=== PATIENT | male | born 1960 | race Caucasian/White ===

== ENCOUNTER 2019-11-20 10:39 | Emergency (ER) | payer BC, SELFPAY ==
[2019-11-20 10:53] VITALS: BP 130/87; PULSE 68; RESP 16; TEMP 36.4; O2SAT 99
--- NOTE | 2019-11-20 11:18 | ED.URI ---
HPI - URI/Sore Throat General Chief Complaint: Upper Respiratory Infection Stated Complaint: cold sx Time Seen by Provider: 11/20/19 11:19 Source: patient Mode of arrival: ambulatory Limitations: no limitations History of Present Illness HPI Narrative: Garo Hallman is a 59 yo male with a PMH of high cholesterol who comes to express care with general cold symptoms, may want covid testing Related Data Allergies Allergy/AdvReac Type Severity Reaction Status Date / Time No Known Allergies Allergy Verified 06/29/19 09:19 Review of Systems Review of Systems: Narrative: CONSTITUTIONAL: Denies fever, chills, sweats. EYES: Denies visual changes, redness, discharge. ENT: Denies rhinorrhea, sinus congestion congestion, sore throat, R otalgia. CARDIOVASCULAR: Denies chest pain, palpitations, edema. RESPIRATORY: Denies dyspnea, wheezing,no cough GASTROINTESTINAL: Denies abdominal pain, nausea, vomiting, diarrhea. GENITOURINARY: Denies dysuria, hematuria, abnormal discharge SKIN: Denies rash or itching. NEUROLOGIC: Denies numbness, or focal weakness. PSYCHIATRIC: Denies anxiety or depression. PMFSH Past Medical History Medical History Anal fissure Diverticula of intestine Lymphocytic colitis Surgical History Surgical History History of hernia repair Family History Family History Father Cerebrovascular accident Family history of irritable bowel syndrome Mother Family history of malignant neoplasm of stomach Sibling Family history of malignant neoplasm of urinary bladder Social History Social History Smoking status: Never smoker Second hand tobacco smoke exposure: No Alcohol intake: current Substance use: never Substance use type: does not use Gender identity (if verbalized by the patient): Male Comments At time of signature, I agree with nursing past medical, surgical, social and family history. There is no relevant family history pertinent to the presenting complaint. Exam Narrative: Exam Narrative: GENERAL: This is a well-nourished, well-developed patient, in mild distress. HEAD: normocephalic, atraumatic. EYES: PERRL. Sclera clear/white. Vision is grossly intact. EARS: External ears normal, auditory canals clear and without drainage, R ear canal red with serous drainage, tender. Hearing grossly intact. NOSE: External nose normal without nasal discharge, nares without redness, sinus pressure THROAT: Mucous membranes moist, posterior pharynx NECK: Neck supple, non-tender CARDIOVASCULAR: Regular rate and rhythm without murmurs, gallops, or rubs. RESPIRATORY: Clear to auscultation. Breath sounds equal bilaterally. No wheezes, rales, or rhonchi. GASTROINTESTINAL: Abdomen soft, non-tender, SKIN: warm, intact with no suspicious lesions or rash, good texture and turgor. NEURO: awake, alert, and oriented to person, place and time. There were no obvious focal neurologic abnormalities. Steady gait EXTREMITIES: Normal range of motion. BACK: Nontender without deformity Course Course Emergency Course: started on era gtts, calritin, decongestanrt referred for covid testing- pt would like test given directions on hydration and infection control Vital Signs Vital signs: Vital Signs Temperature 97.5 F L 11/20/19 10:53 Pulse Rate 68 11/20/19 10:53 Respiratory Rate 16 11/20/19 10:53 Blood Pressure 130/87 11/20/19 10:53 Pulse Oximetry 99 11/20/19 10:53 Temperature 97.5 F L 11/20/19 10:53 Pulse Rate 68 11/20/19 10:53 Respiratory Rate 16 11/20/19 10:53 Blood Pressure 130/87 11/20/19 10:53 Pulse Oximetry 99 11/20/19 10:53 MDM - URI/Sore Throat Differential Diagnosis Differential diagnosis: Likely upper respiratory infection, otitis media, sinusitis, vir
== END 2019-11-20 11:46 | disposition home or self-care (01) ==
PROVIDERS: Emergency Provider Nurse Practitioner; PCP Family Medicine
DX: J32.1 Chronic frontal sinusitis (principal); H65.01 Acute serous otitis media, right ear; Z20.828 Contact with and (suspected) exposure to other viral communicable diseases; E78.00 Pure hypercholesterolemia, unspecified
CPT/HCPCS: 99213; G0463

== ENCOUNTER 2020-01-26 10:55 | Emergency (ER) | payer BC, SELFPAY ==
[2020-01-26 11:03] VITALS: BP 127/89; PULSE 70; RESP 16; TEMP 37.3; O2SAT 99
== END 2020-01-26 11:06 | disposition left against medical advice (07) ==
LOC: EXPCOLL 10:59
PROVIDERS: Emergency Provider Internal Medicine Hematology & Oncology; PCP Family Medicine
DX: Z53.21 Procedure and treatment not carried out due to patient leaving prior to being seen by health care provider (principal)
CPT/HCPCS: 99199

== ENCOUNTER 2020-01-26 11:21 | Emergency (ER) | payer BC, SELFPAY ==
--- NOTE | ~2020-01-26 | CT_ITS ---
EXAMINATION: CT abdomen pelvis w con EXAM DATE: 01/26/2020 12:40 INDICATION: Abdominal pain, history diverticulitis. Nausea and diarrhea. TECHNIQUE: Spiral CT of the abdomen and pelvis was performed following intravenous injection of 100 m L Omnipaque 350. Axial, coronal and sagittal images were reviewed. The dose-length product (DLP) fo r this examination was 611.90 mGy-cm. The exposure was tailored according to patient size (auto mA e xposure control), and iterative reconstruction (ASIR) was used as additional dose reduction technique . Comparison is made to prior examination from 12/16/2017. FINDINGS: Small pancreatic head cystic region measuring 1.7 x 0.9 cm unchanged, likely benign. The l iver, spleen, adrenal glands and pancreas are otherwise unremarkable. Gallbladder is unremarkable. No biliary obstruction. Portal and splenic veins are patent. Kidneys enhance symmetrically. There is no hydronephrosis. The prostate is unremarkable. The bladder is unremarkable. There is no retr operitoneal or pelvic lymphadenopathy. Small periumbilical fat-containing hernia. Possible left ing uinal hernia repair. The appendix is normal. The stomach and small bowel are unremarkable. There is mild scattered coloni c diverticulosis. There is no adjacent inflammatory change to suggest diverticulitis. No free intra peritoneal gas. The heart is normal in size. There are no pericardial or pleural effusions. The l chidi bases are unremarkable. There are no osteoblastic or osteolytic lesions identified. IMPRESSION: 1. No acute intra-abdominal findings. Reviewed, dictated and finalized at location A.
[2020-01-26 11:23] VITALS: BP 131/89; PULSE 66; RESP 14; TEMP 36.6; O2SAT 99
[2020-01-26 11:37] LABS: Basophils Percent Auto 0.3 % (0.2-1.2); Eosinophils Absolute Auto 0.3 K/mm3 (0-0.3); Eosinophils Percent Auto 3.1 % (0-4.4); Hematocrit 46.8 % (42.0-52.0); Hemoglobin 15.9 g/dL (14.0-18.0); Immature Granulocyte Absolute 0.03 K/mm3 (0.00-0.031); Immature Granulocyte Percent A 0.3 % (0-0.5); Lymphocytes Absolute Auto 1.74 K/mm3 (0.9-3.2); Lymphocytes Percent Auto 18.1 % (18.3-44.2); Mean Corpuscular Hemoglobin 31.9 pg (26-34); Mean Corpuscular Volume 93.8 fl (80-100); Mean Platelet Volume 10.3 fl (7.4-10.4); Monocytes Absolute Auto 0.5 K/mm3 (0.1-0.6); Monocytes Percent Auto 5.6 % (2.6-8.5); Neutrophils Percent Auto 72.6 % (45.5-73.1); Platelet Count Result 201 k/mm3 (150-375); Red Blood Count 4.99 M/mm3 (4.6-6.20); Red Cell Distribution Width 12.2 % (11.5-14.5); White Blood Count 9.6 K/mm3 (4.5-10.0)
[2020-01-26 11:53] LABS: Alanine Aminotransferase 37 U/L (4-50); Albumin Level 4.1 g/dL (3.5-5.1); Alkaline Phosphatase 63 U/L (38-126); Anion Gap 7 mmol/L (8-16); Aspartate Amino Transferase 38 U/L (17-59); Bilirubin,Total 0.8 mg/dL (0.2-1.3); Blood Urea Nitrogen 12 mg/dL (9-20); Calcium 8.6 mg/dL (8.4-10.2); Carbon Dioxide 25 mmol/L (22-30); Chloride 107 mmol/L (98-107); Estimated CRCL calculation 84 ml/min; Estimated Glomerular Filt Rate > 60; Glucose 97 mg/dL (75-110); Lipase 75 U/L (23-300); Sodium 139 mmol/L (137-145)
[2020-01-26 11:56] LABS: Add Urine Microscopic? YES; Appearance Urine Clear (Clear); Bacteria Urine Trace /hpf; Bilirubin Urine Negative (Negative); Blood Urine Negative (Negative); Color Urine Yellow (Yellow); Glucose Urine UA Negative (Negative); Ketones Urine Negative (Negative); Leukocyte Esterase Ur Trace LEU/UL (Negative); Mucus Urine Rare /lpf; Nitrate Urine Negative (Negative); Protein Urine Negative (Negative); RBC Urine 0-2 /hpf (0-2); Squamous Epithelial Cell Urine Rare /hpf (Few); Urobilinogen Urine Negative mg/dL (<2.0); WBC Urine 0-3 /hpf
[2020-01-26 13:00] VITALS: BP 110/82; BP 115/79; BP 115/84; PULSE 56; PULSE 63; PULSE 70
--- NOTE | 2020-01-26 13:00 | PC.NURSE ---
Pt noted to have swelling to right upper FA. Pt states he did not see it prior to now. EDP made aware.
[2020-01-26 13:22] VITALS: BP 115/84; PULSE 63; RESP 18; O2SAT 100
[2020-01-26] MEDS: ONDANSETRON INJ 4 MG/2 ML VIAL IV PUSH (13:25)
[2020-01-26] MEDS: PANTOPRAZOLE SODIUM IV 40 MG VIAL IV PUSH (13:25)
[2020-01-26] MEDS: SODIUM CHLORIDE 0.9% IV 1,000 ML 999 ML IV CONT (13:26)
--- NOTE | 2020-01-26 15:04 | ED.NAVMDI ---
HPI - Nausea/Vomiting/Diarrhea General Chief complaint: Nausea/Vomiting/Diarrhea Stated complaint: nausea, diarrhea Time Seen by Provider: 01/26/20 11:43 Source: patient Mode of arrival: ambulatory Limitations: no limitations History of Present Illness HPI Narrative: Patient presents with chief complaint of lower lip faint epigastric discomfort that began last night. Patient states that he had a meal which with vegetables and went to bed at approximately 10:00 and woke up at 1130 with abdominal pain nausea and diarrhea. Patient states that he has a history of intermittent abdominal pain, diverticulitis, and other abdominal issues for which he followed up with Dr. Gutierrez gastroenterology but he is not currently on any home medications. He states that he has not had any major issues in the past 2 years. Patient denies fever, chills, vomiting, chest pain, shortness of breath or any other symptoms. Patient denies having any blood or mucus in his stool. Patient denies extremely foul-smelling stool. Patient denies being on antibiotics recently. Patient states he has not drank for ate anything since last night. Related Data Allergies Allergy/AdvReac Type Severity Reaction Status Date / Time No Known Allergies Allergy Verified 01/26/20 11:26 Review of Systems Review of Systems: Narrative: CONSTITUTIONAL: Denies fever, chills, or sweats. EYES: Denies visual changes, redness, or discharge. ENT: Denies rhinorrhea, congestion, sore throat, or otalgia. CARDIOVASCULAR: Denies chest pain, palpitations, or edema. RESPIRATORY: Denies cough or dyspnea. GASTROINTESTINAL: Reports abdominal pain, nausea, or diarrhea. Denies vomiting GENITOURINARY: Denies dysuria or hematuria. SKIN: Denies rash or itching. MUSCULOSKELETAL: Denies back pain, joint pain, or myalgia. NEUROLOGIC: Denies headache, numbness, dizziness, or weakness. PSYCHIATRIC: Denies anxiety or depression. PMFSH Social History Social History Smoking status: Never smoker Second hand tobacco smoke exposure: No Alcohol intake: current Substance use: never Substance use type: does not use Gender identity (if verbalized by the patient): Male Exam Narrative: Exam Narrative: GENERAL: Well-appearing, well-nourished, and in no acute distress. HEAD: Normocephalic, atraumatic. EYES: PERRLA and EOMI. ENT: Nares clear, no rhinorrhea or epistaxis. Mucous membranes moist. Oropharynx without tonsillar hypertrophy exudate or other lesions. Bilateral TMs pearly medina nonbulging NECK: Supple. No adenopathy or masses. CHEST: Clear to auscultation. No respiratory distress. No wheezes rales or rhonchi HEART: Regular rate and rhythm. ABDOMEN: Soft, mildly tender with deep palpation of the epigastric and lower left quadrant, nondistended. Hyperactive bowel sounds in all quadrants. EXTREMITIES: Normal range of motion. No edema. SKIN: Warm, dry, no rash. NEURO: No focal deficits. Alert and oriented x3. PSYCH: Normal mood and affect. Course Vital Signs Vital signs: Vital Signs Temperature 98 F 01/26/20 11:23 Pulse Rate 66 01/26/20 11:23 Respiratory Rate 14 01/26/20 11:23 Blood Pressure 131/89 01/26/20 11:23 Pulse Oximetry 99 01/26/20 11:23 Temperature 98 F 01/26/20 11:23 Pulse Rate 56 L 01/26/20 15:55 Respiratory Rate 18 01/26/20 15:55 Blood Pressure 124/84 01/26/20 15:55 Pulse Oximetry 100 01/26/20 15:55 MDM - Nausea/Vomiting/Diarrhea MDM Narrative Medical decision making narrative: The patient's history of prior fistula than diverticulitis found her primary to CT patient's abdomen to make sure there are not any complicating factors. Patient has not seen registered account administrator in over a year. Patient CT is without acute complications. Patient has been instructed to follow-up with his primary care and registered account administrator. Patient will be prescribed Zofran for home. Patient encouraged to advance
[2020-01-26 15:55] VITALS: BP 124/84; PULSE 56; RESP 18; O2SAT 100
== END 2020-01-26 16:00 | disposition home or self-care (01) ==
PROVIDERS: Emergency Provider Emergency Medicine; PCP Family Medicine
DX: K52.9 Noninfective gastroenteritis and colitis, unspecified (principal)
CPT/HCPCS: 36415; 74177; 80053; 81001; 83690; 85025; 96361; 96374; 96375; 99284; C9113; J2405; J7030; Q9967

== ENCOUNTER → 2022-01-05 10:50 | Outpatient (CLI) | payer BC, SELFPAY ==
--- NOTE | ~2022-01-05 | XR_ITS ---
XR lumbar spine min 4V DATE: 01/05/2022 11:44 INDICATION: Back pain, radiculopathy. TECHNIQUE: AP, lateral, bilateral oblique views, coned lateral lumbosacral view COMPARISON: 07/20/2014 lumbar spine FINDINGS: There is osteopenia. There is mild levoscoliosis of the lumbar spine. There is degenerative spurring of the lower thoracic and throughout the lumbar spine, with multilevel degenerative disc disease, moderately severe L1 to and L5-S1, mild at L2-3 and moderate at L3-4 and L4-5. No fracture or bone destruction, spondylolysis or spondylolisthesis is detected. The sacroiliac joints are intact. IMPRESSION: Mild levoscoliosis Osteopenia Multilevel degenerative disc disease Reviewed, dictated and finalized at location B.
== END ==
PROVIDERS: PCP Physician Assistant; Visit Provider Physician Assistant
DX: M54.16 Radiculopathy, lumbar region (principal); M41.86 Other forms of scoliosis, lumbar region; M51.36 Other intervertebral disc degeneration, lumbar region
CPT/HCPCS: 72110

== ENCOUNTER 2022-07-26 00:45 | Emergency (ER) | payer BC, SELFPAY ==
[2022-07-26] VITALS (30 sets, daily range): BP systolic 123–144; BP diastolic 87–91; PULSE 63–91; RESP 11–18; TEMP 37.4; O2SAT 93–98
--- NOTE | ~2022-07-26 | XR_ITS ---
Clinical Indication: Chest pain PA and lateral views of the chest: Comparison: 10/12/2015 Findings: The lungs are clear, without evidence of focal consolidation or pleural effusion. Cardiome diastinal silhouette is within normal limits. Bones and soft tissues are unremarkable. Impression: Normal chest. Reviewed, dictated and finalized at [facility]. ENT FINANCE SPECIALIST Impression: Normal chest.
--- NOTE | 2022-07-26 00:51 | ECG_ITS ---
Measurements Intervals Berry Rate: 85 P: 6 WA: 167 QRS: -76 QRSD: 93 T: -2 QT: 364 QTc: 435 Interpretive Statements SINUS RHYTHM PATTERN CONSISTENT WITH PULMONARY DISEASE INCOMPLETE RIGHT BUNDLE BRANCH BLOCK [90+ ms QRS DURATION, TERMINAL R IN V1/V2, 40+ ms S IN I/aVL/V4/V5/V6] LEFT ANTERIOR FASCICULAR BLOCK [QRS AXIS <= -45, QR IN I, RS IN II] ABNORMAL ECG NO PREVIOUS ECG AVAILABLE FOR COMPARISON Electronically Signed On 07-26-2022 10:09:29 BOOSTER PLANT OPERATOR by Alek Cason M.D.
--- NOTE | 2022-07-26 01:20 | ED.NECK ---
HPI - Neck Pain/Injury General Chief Complaint: Neck Pain/Injury Stated Complaint: shoulder, neck pain. ?chest pain Time Seen by Provider: 07/26/22 01:08 History of Present Illness HPI Narrative: Patient is a 62-year-old male with a history of hyperlipidemia here for evaluation of left shoulder pain over the past hour. Patient states that he woke up with the pain, described as a dull ache. He states he had a similar sensation 2 evenings ago that resolved without intervention. States that the pain radiates into his left neck and occasionally into his left chest. No shortness of breath, cough, fevers or chills, nausea or vomiting. He lives a very active lifestyle and denies any chest pain with exertion. No similar sensation 3 years ago and was admitted to outside hospital for stress test that was negative. EMS administered aspirin and nitroglycerin. Patient still having pain. Related Data Home Medications Medication Instructions Recorded Confirmed ascorbate calcium (vitamin C) 500 500 mg PO DAILY 01/05/22 01/29/22 mg tablet milk thistle 150 mg capsule 150 mg PO DAILY 01/05/22 01/29/22 nppnhrkw-jrf-ktlor acid 300 1 tablet PO DAILY 01/05/22 01/29/22 mcg-lycopene 600 mcg-lutein 300 mcg tablet (Centrum Silver Men) omega 8-nlo-hvh-fish oil 60 mg-90 1 cap PO DAILY 01/05/22 01/29/22 mg-500 mg capsule (Fish Oil) Allergies Allergy/AdvReac Type Severity Reaction Status Date / Time No Known Allergies Allergy Verified 07/26/22 00:53 Review of Systems Review of Systems: Gen: Denies fevers or chills Eyes: Denies eye pain or visual change ENT: Denies congestion Respiratory: Denies shortness of breath or cough CV: Denies chest pain or palpitations GI: Denies abdominal pain nausea, emesis or diarrhea : denies burning, urgency, frequency or hematuria Musculoskeletal: Reports left shoulder pain Neuro: Denies numbness, tingling, weakness or focal weakness Skin: Denies rash Except as documented, all other systems reviewed and negative [facility] Past Medical History Medical History Anal fissure Diverticula of intestine Lymphocytic colitis Surgical History Surgical History History of hernia repair History of rectal sphincterotomy Family History Family History Father Cerebrovascular accident Family history of irritable bowel syndrome Vascular dementia Mother Family history of malignant neoplasm of stomach Sibling Family history of malignant neoplasm of urinary bladder Other Gastric cancer Social History Social History Smoking status: Never smoker Second hand tobacco smoke exposure: No Alcohol intake: current Alcohol use details: Occasional. 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 Gender identity (if verbalized by the patient): Male Exam Narrative: APPEARANCE: Well appearing, no pain in distress, well-nourished. Head: Normocephalic and atraumatic. EYES: PERRLA/EOMI, conjunctivae clear NOSE: No nasal drainage EARS: External ear normal in appearance THROAT: Oropharynx is clear. Mucous membranes are moist. NECK: Supple. No adenopathy, no masses. RESPIRATORY: Airway patent, respirations nonlabored. Clear to auscultation bilaterally, no rales, rhonchi, wheezing. CARDIOVASCULAR: Strong radial pulses. Regular rate and rhythm without murmurs, rubs, or gallops. ABDOMINAL: Normoactive bowel sounds. Soft, nontender, nondistended. No rebound tenderness or guarding. MUSCULOSKE
[2022-07-26] MEDS: ACETAMINOPHEN 500 MG TABLET 1000 MG PO (01:38)
[2022-07-26 01:40] LABS: Basophils Percent Auto 0.4 % (0.2-1.2); Eosinophils Absolute Auto 0.3 K/mm3 (0-0.3); Eosinophils Percent Auto 2.9 % (0-4.4); Hematocrit 43.4 % (42.0-52.0); Hemoglobin 14.6 g/dL (14.0-18.0); Immature Granulocyte Absolute 0.04 K/mm3 (0.00-0.031); Immature Granulocyte Percent A 0.4 % (0-0.5); Lymphocytes Absolute Auto 2.31 K/mm3 (0.9-3.2); Lymphocytes Percent Auto 23.2 % (18.3-44.2); Mean Corpuscular HGB Conc 33.6 g/dl (32-36); Mean Corpuscular Hemoglobin 31.7 pg (26-34); Mean Corpuscular Volume 94.3 fl (80-100); Mean Platelet Volume 9.9 fl (7.4-10.4); Monocytes Absolute Auto 0.8 K/mm3 (0.1-0.6); Monocytes Percent Auto 7.8 % (2.6-8.5); Neutrophils Absolute Auto 6.5 K/mm3 (1.3-6.7); Neutrophils Percent Auto 65.3 % (45.5-73.1); Platelet Count Result 222 k/mm3 (150-375); Red Cell Distribution Width 11.6 % (11.5-14.5)
[2022-07-26 01:50] LABS: Alanine Aminotransferase 30 U/L (6-50); Albumin Level 4.1 g/dL (3.5-5.1); Alkaline Phosphatase 86 U/L (38-126); Anion Gap 9 mmol/L (8-16); Aspartate Amino Transferase 34 U/L (17-59); Bilirubin,Total 0.7 mg/dL (0.2-1.3); Blood Urea Nitrogen 16 mg/dL (9-20); Calcium 8.3 mg/dL (8.4-10.2); Carbon Dioxide 24 mmol/L (22-30); Chloride 104 mmol/L (98-107); Estimated CRCL calculation 81 ml/min; Estimated Glomerular Filt Rate > 60; Glucose 99 mg/dL (65-110); Potassium 3.6 mmol/L (3.4-5.0); Sodium 137 mmol/L (137-145)
[2022-07-26 02:02] LABS: Troponin I < 0.012 ng/mL (0.000-0.034)
[2022-07-26 05:44] LABS: Troponin I < 0.012 ng/mL (0.000-0.034)
== END 2022-07-26 06:27 | disposition home or self-care (01) ==
PROVIDERS: Emergency Provider Physician Assistant; PCP Family Medicine
DX: M25.512 Pain in left shoulder (principal); E78.5 Hyperlipidemia, unspecified; R94.31 Abnormal electrocardiogram [ECG] [EKG]; I45.2 Bifascicular block
CPT/HCPCS: 36415; 71046; 80053; 84484; 85025; 93005; 99284; A9270

== ENCOUNTER → 2022-07-27 09:23 | Outpatient (CLI) | payer BC, SELFPAY ==
--- NOTE | ~2022-07-27 | XR_ITS ---
Cervical Spine: AP, lateral, open-mouth views Clinical History: Pain Findings: The normal lordotic curve is maintained. No fracture or subluxation identified. There is mi ld degenerative disc change at C4-C5, C5-C6. There is moderate degenerative disc narrowing at C6-C7. There are large anterior marginal osteophytes extending from C3 through C7. There is mild uncovertebr al degenerative change at C4-C5 and C5-C6. Pre-vertebral soft tissues are unremarkable. Impression: No fracture or sublocation. Degenerative changes, as detailed above. Reviewed, dictated and finalized at location . LATORY AGENCY DIRECTOR Impression: No fracture or sublocation. Degenerative changes, as detailed above.
--- NOTE | ~2022-07-27 | XR_ITS ---
Left Shoulder Technique: AP and axillary views were obtained. Clinical History: Pain Findings: No fracture or dislocation is seen. Osseous alignment is anatomic. There is mild AC joint d egenerative change. Glenohumeral joint is unremarkable. Soft tissues are unremarkable. Impression: Mild AC joint degenerative change. Reviewed, dictated and finalized at [facility]. S SUPPORT ADMINISTRATOR Impression: Mild AC joint degenerative change.
== END ==
PROVIDERS: PCP Physician Assistant; Visit Provider Physician Assistant
DX: M19.012 Primary osteoarthritis, left shoulder (principal)
CPT/HCPCS: 72050; 73030

== ENCOUNTER → 2022-08-31 09:14 | Outpatient (CLI) | payer BC, SELFPAY ==
--- NOTE | ~2022-08-31 | CT_ITS ---
Clinical Indication: Chronic giant cell arteritis CT Scan of the Chest with Contrast: Technique: Contiguous sections were acquired throughout the chest after intravenous administration of 75 cc of Omnipaque 350. Dose reduction technique was used on this scan by utilizing automated exposu re control and iterative reconstruction technique. The dose-length product (DLP) was 349.31 mGy-cm. Findings: There is no evidence of any significant mediastinal, hilar or axillary lymphadenopathy. There is no f illing defect in the pulmonary arterial tree to suggest pulmonary embolus. There is no evidence of ao rtic dissection or aneurysm. There is no evidence of pleural or pericardial effusion. The lungs are clear. No pulmonary nodules or infiltrates are noted. Images through the upper abdomen reveal no abnormalities. Impression: No significant abnormality seen. Reviewed, dictated and finalized at [facility]. Impression: No significant abnormality seen.
[2022-08-31 09:32] LABS: Estimated Glomerular Filt Rate > 60
== END ==
PROVIDERS: PCP Family Medicine; Visit Provider Internal Medicine
DX: M31.6 Other giant cell arteritis (principal); G57.11 Meralgia paresthetica, right lower limb
CPT/HCPCS: 71260; Q9967

== ENCOUNTER 2022-12-26 09:11 | Outpatient (CLI) | payer BC, SELFPAY ==
--- NOTE | ~2022-12-26 | US_ITS ---
Limited Abdominal Sonogram: Real-time sonographic imaging of the right upper quadrant was performed. Clinical History: Abnormal serum enzyme levels Findings: The liver appears normal with no evidence of mass lesion or bile duct dilatation. Main por casey vein demonstrates normal direction of flow. The gallbladder is well distended, and appears normal with no evidence of gallstone or wall thickening. The common bile duct measures 5 mm. The visualize d pancreas, aorta, and IVC are unremarkable. Impression: No significant abnormality seen. Reviewed, dictated and finalized at location M. Impression: No significant abnormality seen.
== END 2022-12-26 09:12 ==
PROVIDERS: PCP Family Medicine; Visit Provider Family Medicine
DX: R74.8 Abnormal levels of other serum enzymes (principal)
CPT/HCPCS: 76705

== ENCOUNTER 2023-02-05 12:52 | Outpatient (CLI) | payer BC, SELFPAY ==
--- NOTE | ~2023-02-05 | US_ITS ---
EXAMINATION: US soft tissue head and neck DATE: 02/05/2023 13:50 INDICATION: Localized swelling, mass and lump, neck. TECHNIQUE: Multiple grayscale and Doppler ultrasound images of the neck were obtained. COMPARISON: Chest CT 08/31/2022 FINDINGS: There is no abnormal mass or lymphadenopathy in the patient's area of concern in the neck. IMPRESSION: 1. No abnormal mass or lymphadenopathy in the patient's area of concern in the neck. Reviewed, dictated and finalized at location A.
--- NOTE | ~2023-02-05 | US_ITS ---
EXAMINATION: US arterial ankle brachial ind DATE: 02/05/2023 13:44 INDICATION: Peripheral vascular disease TECHNIQUE: Segmental pressures and plethysmographic and Doppler waveforms of the brachial and lower e xtremity arteries were obtained. COMPARISON: None. FINDINGS: Right and left brachial artery pressures of mm Hg and 124 mm Hg, respectively, are 126 (normal differ ence <= 30 mmHg). The right ankle-brachial index (ALICIA) is 1.40 (normal >= 0.9-1.0). The right great toe-brachial index (TBI) is 0.84 (normal >= 0.65). Arterial Doppler waveforms are triphasic with brisk systolic upstroke s at both right posterior tibial and dorsalis pedis arteries. The left ALICIA is 1.25. The left TBI is 0.87. Arterial Doppler waveforms are triphasic with brisk systo lic upstrokes at both left posterior tibial and dorsalis pedis arteries. IMPRESSION: 1. No significant arterial occlusive disease with normal bilateral ABIs and TBIs. Reviewed, dictated and finalized at location A. IMPRESSION: 1. No significant arterial occlusive disease with normal bilateral ABIs and TBI s.
== END 2023-02-05 12:53 | disposition home or self-care (01) ==
PROVIDERS: PCP Family Medicine; Visit Provider Physician Assistant Medical
DX: I73.9 Peripheral vascular disease, unspecified (principal)
CPT/HCPCS: 76536; 93922

== ENCOUNTER 2023-02-20 14:48 | Outpatient (CLI) | payer BC, SELFPAY ==
--- NOTE | ~2023-02-20 | XR_ITS ---
XR chest 2V DATE: 02/20/2023 15:13 INDICATION: Pleural chest pain TECHNIQUE: 2 views COMPARISON: 08/31/2022 CT chest FINDINGS: Heart size appears borderline. Mild aortic unfolding. No hilar or mediastinal enlargement i s detected. No pulmonary infiltrate or consolidation, pleural effusion or pulmonary vascular congestion or pneumo thorax is detected. Degenerative spurring of the thoracic spine. IMPRESSION: No active pulmonary disease Reviewed, dictated and finalized at location A. IMPRESSION: No active pulmonary disease
== END 2023-02-20 14:49 ==
PROVIDERS: PCP Family Medicine; Visit Provider Family Medicine
DX: R07.81 Pleurodynia (principal)
CPT/HCPCS: 71046

== ENCOUNTER 2024-02-25 13:25 | Outpatient (CLI) | payer MEDICARE, SELFPAY ==
--- NOTE | 2024-02-25 15:00 | NEURO_ITS ---
Impression: # Complains of numbness of feet. # Findings compatible with axonal neuropathy. # Needle/EMG exam reveals neurogenic changes. # Clinical correlation recommended. Nerve Conduction Studies Anti Sensory Summary Table Stim Site NR Peak (ms) P-T Amp (?V) Site1 Site2 Delta-P (ms) Dist (cm) Isaías (m/s) Left Sup Fibular Anti Sensory (Ant Lat Mall) 14 cm 4.1 5.9 14 cm Ant Lat Mall 4.1 16.0 39 Right Sup Fibular Anti Sensory (Ant Lat Mall) 14 cm 4.0 15.1 14 cm Ant Lat Mall 4.0 16.0 40 Left Sural Anti Sensory (Lat Mall) Calf 4.6 12.8 Calf Lat Mall 4.6 16.0 35 Right Sural Anti Sensory (Lat Mall) Calf 4.2 6.4 Calf Lat Mall 4.2 16.0 38 Motor Summary Table Stim Site NR Onset (ms) O-P Amp (mV) Site1 Site2 Delta-0 (ms) Dist (cm) Isaías (m/s) Left Peroneal Motor (Vastus Med) Ankle 4.5 1.6 Popit Ankle 11.1 44.0 40 Popit 15.6 1.8 Right Peroneal Motor (Vastus Med) Ankle 4.5 3.2 Popit Ankle 10.0 41.0 41 Popit 14.5 2.6 Left Tibial Motor (Abd Cheney Brev) Ankle 5.2 1.0 Knee Ankle 10.7 47.0 44 Knee 15.9 0.6 Right Tibial Motor (Abd Cheney Brev) Ankle 4.8 1.5 Knee Ankle 11.7 42.0 36 Knee 16.5 1.1 F Wave Studies NR F-Lat (ms) L-R F-Lat (ms) Left Peroneal (Mrkrs) (EDB) 65.71 0.78 Right Peroneal (Mrkrs) (EDB) 64.93 0.78 Left Tibial (Mrkrs) (Abd Hallucis) 64.67 0.77 Right Tibial (Mrkrs) (Abd Hallucis) 65.44 0.77 EMG Side Muscle Nerve Root Ins Act Fibs Amp Dur Recrt Comment Right AntTibialis Dp Br Fibular L4-5 Nml Nml Nml >12ms +1 Right Gastroc Tibial S1-2 Nml Nml Nml >12ms +1 Right Fibularis Long Sup Br Fibular L5-S1 Nml Nml Nml >12ms +1 Right Flex Dig Long Tibial L5-S2 Nml Nml Nml >12ms +1 Right Ext Dig Brev Dp Br Fibular L5, S1 Nml Nml Nml >12ms +1 Right QuadratusFem QuadFemoris L4-5, S1 Nml Nml Nml >12ms +1 Left AntTibialis Dp Br Fibular L4-5 Nml Nml Nml >12ms +1 Left Gastroc Tibial S1-2 Nml Nml Nml >12ms +1 Left Fibularis Long Sup Br Fibular L5-S1 Nml Nml Nml >12ms +1 Left Flex Dig Long Tibial L5-S2 Nml Nml Nm >12ms +1 Left Ext Dig Brev Dp Br Fibular L5, S1 Nml Nml Nml >12ms +1 Left QuadratusFem QuadFemoris L4-5, S1 Nml Nml Nml >12ms +1 MTDD
== END 2024-02-25 13:26 | disposition home or self-care (01) ==
PROVIDERS: PCP Family Medicine; Visit Provider Family Medicine
DX: R20.0 Anesthesia of skin (principal)
CPT/HCPCS: 95886; 95910

== ENCOUNTER 2025-03-01 15:37 | Outpatient (CLI) | payer MEDICARE, SELFPAY ==
--- OUTSIDE RECORDS SUMMARY | 2000-07-08 08:30 | XMS_ITS | Continuity of Care Document ---
Author Organization [facility] Address [id number] [place] [address] [address] [place] [address] Phone Care Team Providers Care Doctor Of Radiology Name Role Phone Won Valverde Unavailable Unavailable Advance Directives Directive Yes / No Effective Date File Name No Information Encounters Encounter Description Practice Location Reason(s) For Visit Diagnoses Date Provider Providers Copied on Encounter [facility], [id number] [place] [address] [address], [place], [place], [id number], [place] tel:[phone] [facility] [place] No Information [id number] 1 Abr[address] Upton. [address] [facility] [place] , [address], [place], [address], [place]. tel:[phone] Family History Family Member Type Diagnosis Age At Onset No Information Payers Payer name Insurance type Covered green party ID Authoriza tion(s) [place] [id number] Social History Type Description Quantity Date Captured [...]
--- OUTSIDE RECORDS SUMMARY | 2025-03-01 15:00 | XMS_ITS | Encounter Summary ---
Author Organization [facility] [email or web address] [facility] Address [address] [place] [address] Care Team Providers Care Aluminum Hydroxide Process Operator Name Role Phone Unavailable Primary Care Provider Unavailabl e Reason for Referral * Radiology Services (Routine) - Open Specialty Diagnoses / Procedures Referred By Kimberlee t Referred To Contact Diagnoses Plasma cell disorder Procedures XR BONE SURVEY COMPLETE Curt Augustine MD [address] [place] [phone] Phone: tel: fax: Referral ID Status Reason Start Date Expiration Date Visits Re quested Visits Authorized [id number] Open 03/01/2025 04/01/2026 1 1 Reason for Visit * Reason Comments Establish Care Encounter Details Date Type Department Care Team (Late st Contact Info) Description 03/01/2025 3:00 PM CDT Office Visit [facility] Oncology and Hematology - [place] [address] [place] [address] [address] [place] [address] Curt Augustine MD [facility] [employer] [address] [place] [address] Colitis (Primary Dx); Giant cell arteritis (CMS/HCC); Neuropathy; High cholesterol; Plasma cell disorder Social History Tobacco Use Types Packs/Day Years Used Date Smoking Tobacco: Never Smokeless Tobacco: Never Tobacco Cessation:Counseling Given: Not Answered Alcohol Use Standard Drinks/Week Comments Yes 4 (1 standard drink = 0.6 oz pur e alcohol) Sex and Gender Information Value Date Recorded Sex Assigned at Not on file Legal Sex Male 3:27 PM CDT Gender Identity Not on file Sexual Orientation Not on file documented as of this encounter Last Filed Vital Signs Vital Sign Reading Time Taken Comments Blood Pressure 118/79 03/01/2025 2:57 PM CDT Pulse 72 03/01/2025 2:57 PM CDT Temperature 36.6 C (97.9 F) 03/01/2025 2:57 PM CDT Respiratory Rate - - Oxygen Saturation 97% 03/01/2025 2:57 PM CDT Inhaled Oxygen Concentration - - Weight 94.4 kg (208 lb 3.2 oz) 03/01/2025 2:57 P M CDT Height - - Body Mass Index - - documented in this encounter Plan of Treatment Upcoming Encounters Date Type Department Care Team (Late st Contact Info) Description 03/16/2025 4:30 PM CDT Telephone Check Up [facility] Oncology and Hematology [facility] [address] [facility] [address] [place] [address] Curt Augustine MD [address] [facility] [address] [place] [address] Scheduled Orders Name Type Priority Associated Diagnoses Orde r Schedule CBC WITH DIFFERENTIAL Lab Stat Plasma cell disorder Expected: 03/01/2025, Expires: 03/01/2026 COMPREHENSIVE METABOLIC PANEL Lab Stat Plasma cell disorder Expected: 03/01/2025, Expires: 03/01/2026 IMMUNOGLOBULINS IGG IGA IGM Lab Routine Plasma cell disorder Expected: 03/01/2025, Expires: 03/01/2026 PROTEIN ELECTROPHORESIS W/REFLEX,SERUM Lab Routine Plasma cell disorder Expected: 03/01/2025, Expires: 03/01/2026 KAPPA/LAMBDA, FREE LIGHT CHAINS Lab Routine Plasma cell disorder Expected: 03/01/2025, Expires: 03/01/2026 XR BONE SURVEY COMPLETE Imaging Routine Plasma cell disorder 1 Occurrences starting 03/01/2025 until 03/01/2026 documented as of this encounter Visit Diagnoses Diagnosis Colitis- Primary Other and unspecified noninfectious gastroenteritis and colitis Giant cell arteritis (CMS/HCC) Giant cell arteritis Neuropathy Mononeuritis of unspecified site High cholesterol Pure hypercholesterolemia Plasma cell disorder Other specified disease of white blood cells documented in this encounter
[2025-03-01 15:54] LABS: Hematocrit 45.7 % (42.0-52.0); Hemoglobin 14.7 g/dL (14.0-18.0); Immature Granulocyte Percent A 0.2 % (0-0.5); Lymphocytes Absolute Auto 2.30 K/mm3 (0.9-3.2); Mean Corpuscular HGB Conc 32.2 g/dl (32-36); Mean Corpuscular Hemoglobin 31.1 pg (26-34); Mean Corpuscular Volume 96.6 fl (80-100); Nucleated Red Blood Cells Absolute Auto 0.000 K/mm3 (0.0-0.012); Nucleated Red Blood Cells Perc 0.0 % (0.0-0.2); Platelet Count Result 205 k/mm3 (150-375); Red Blood Count 4.73 M/mm3 (4.6-6.20); White Blood Count 8.3 K/mm3 (4.5-10.0)
--- OUTSIDE RECORDS SUMMARY | 2025-03-01 16:27 | XMS_ITS | Clinical Summary ---
Author Organization [facility] Address [address] [address] Phone Care Team Providers Care Brick Picker Name Role Phone Lisy Stewart MD Primary Care Provider [phone] Sumaya Foreman APRN, EDI PROGRAMMER ANALYST Unavailable Carl Leigh MD Unavailable [phone] Allergies No known active allergies Medications bismuth subsalicylate (PEPTO-BISMOL) 262 MG/15ML Suspension Take 30 mL by mouth every 6 hours as needed. Active atorvastatin (LIPITOR) 20 MG Tablet Take 20 mg by mouth daily. 1 Active Multiple Vitamins-Minerals (CENTRUM SILVER PO) Take by mouth daily. Active Wyalusing-3 Fatty Acids (fish oil) 1200 MG Capsule Take 1,200 mg by mouth daily. Active Ascorbic Acid (Vitamin C) 1000 MG Tablet Take by mouth daily. Active Turmeric 500 MG Tablet Take by mouth daily. Active Milk Thistle 1000 MG Capsule Take by mouth daily. Active other by Other route daily. Total beets Active vancomycin (VANCOCIN) 125 MG Capsule Take 1 Capsule by mouth 4 times daily. 40 Capsule 1 Active Additional Information Patient not taking.Reported on 10/12/2021 diclofenac (VOLTAREN) 75 MG Tablet Delayed Response 3 Active folic acid (FOLVITE) 1 MG Tablet 3 Active omeprazole (PriLOSEC) 40 MG CAPSULE DELAYED RELEASE Take 40 mg by mouth daily. 3 Active traMADol (ULTRAM) 50 MG Tablet TAKE 1 TABLET BY MOUTH THREE TIMES DAILY WITH TYLENOL FOR PAIN CONTROL 3 Active sulfaSALAzine (AZULFIDINE) 500 MG Tablet Delayed Response Take 3,000 mg by mouth daily. 4 Active budesonide (ENTOCORT EC) [address] Bull ons:Diarrhea, unspecified type,Microscopic colitis, unspecified microscopic colitis type Take 3 Capsules by mouth every morning. 90 Capsule 4 Active Active Problems Problem Noted Date Diagnosed Date Polymyalgia rheumatica 08/20/2022 Immunizations Immunization Administration Dates Next Due TDAP Vaccine 10/17/2016,12/06/2011 Family History Medical History Relation Name Comments Cancer Brother bladder Stroke Father Cancer Mother gastric Cancer Sister skin Relation Name Status Comments Brother Father Alive Mother Sister Social History Tobacco Use Types Packs/Day Years Used Date Smoking Tobacco: Never Smokeless Tobacco: Never Tobacco Cessation:Counseling Given: Not Answered Alcohol Use Standard Drinks/Week Comments Yes 0 (1 standard drink = 0.6 oz pur e alcohol) Rare Sexually Active Control Partners Comments Not Currently Sex and Gender Information Value Date Recorded Sex Assigned at Not on file Legal Sex Male 12:14 AM CDT Gender Identity Not on file Sexual Orientation Not on file Occupation Industry Job Start Date Job End Date [employer] Not on file Not on file Not on file Last Filed Vital Signs Vital Sign Reading Time Taken Comments Blood Pressure 128/82 01/14/2024 11:18 AM CDT Pulse 72 01/14/2024 11:18 AM CDT Temperature 37.1 C (98.7 F) 01/14/2024 11:18 AM CDT Respiratory Rate 14 01/14/2024 11:1 8 AM CDT Oxygen Saturation 97% 01/14/2024 11: 18 AM CDT Inhaled Oxygen Concentration - - Weight 98.4 kg (216 lb 13.9 oz) 024 11:18 AM CDT Height 182.9 cm (6') 01/14/2024 11:18 AM CDT Body Mass Index 29.41 01/14/2024 11:18 AM CDT Plan of Treatment Health Maintenance Due Date Last Done Comments Cologuard 2004 Immunochemical Fecal Occult Blood 2004 Pneumococcal Immunization (5 0+ years) (1 of 1 - PCV) 2009 Zoster Immunization (1 of 2) 2009 PSA Discussion 2014 Influenza Immunization (#1) 2025 SARS-COV-2 Immunization (3 - season) 2025 09/26/2020, 09/03/2020 Td Immunization Every 10 Yea rs (Adults With 1 Tdap) 10/17/2026 10/17/2016, 12/06/2011 Colonoscopy 08/17/2031 08/16/2021, 02/10/2018 Colorectal Cancer Screening 08/17/2031 Respiratory Syncytial Virus (RSV) Immunization (Adult) (1 - 1-dose 75+ series) 2034 DTaP/Tdap/Td Immunization Discontinued 2016, 12/06/2011 Hepatitis C Virus (HCV) Screening Completed 08/28/2022 Hepatitis B Immunization Aged Out No longer eligible based on patient's age to complete this topic Human Papillomavirus (HPV) Immunization Aged Out No longer eligible based on patient's age to complete this topic Meningococcal Immunization (ACWY) Aged Out No longer eligible based on patient's age to complete this topic Rotavirus Immunization Aged Out No lo nger eligible based on patient's age to complete this topic Procedures Procedure Name Priority Date/Time Associated Diagnosis Comments HEPATITIS PANEL ACUTE (AHP) 08/28/2022 12:00 AM CDT from Last 3 Months or Most Recently Relevant to Health Maintenance Results * HEPATITIS PANEL ACUTE (AHP) (08/28/2022 12:00 AM CDT) 08/28/2022 us Provider Scan HEMATOLOGY ORDERABLES Final Resu lt SCAN from Last 3 Months or Most Recently Relevant to Health Maintenance Insurance MEDICARE [employer] Care Teams Brick Picker Relationship Specialty Start Date End Date Lisy Stewart MD [address] [place] [address] PCP - General Family Medicine 08/14/21 Sumaya Foreman APRN, EDI PROGRAMMER ANALYST [address] [place] [address] Nurse Practitioner Advanced Practice Nurse 09/13/22 Carl Leigh MD [address] [place] [address] Consulting Physician Gastroenterology 07/25/23
--- OUTSIDE RECORDS SUMMARY | 2025-03-01 16:27 | XMS_ITS | Data Portability ---
Author Organization [place] - [facility] [employer] [facility], Main Office Address [address] [place] [address] Care Team Providers Care Welder First Class Name Role Phone BRYANT JENNINGS Primary Care Provider BRYANT JENNINGS Referring Provider [phone] Assessment Encounter Date Assessment Date Assessment LastModified by Organization Details LastModified Time 08/20/2022 08/20/2022 Impression: Patient has a normal left shoulder examination today I do not think he has any pathology. His constellation of symptoms makes me think of polymyalgia rheumatica. He had severe pain in both temples. He has had left shoulder girdle pain bilateral biceps area pain and more recently bilateral proximal anterior thigh pain. He has had constitutional symptoms including low-grade fever weight loss and pronounced morning stiffness. However his sedimentation rate was completely normal. I studied the laboratory findings discussed in articles that I [employer] and it appears that there is some very bili and polymyalgia rheumatica patient's that some patients have a normal sedimentation rate and a high C-reactive protein and some patients a small subset have negative sedimentation rate and negative C-reactive protein. I recommended trying to get him into a senior process analyst to see if he can be seen in a timely fashion and we will have him call Dr. Hayes's office for appointment. I recommended trying a course of corticosteroids and I have prescribed prednisone 20 mg daily and I am going to order a C-reactive protein level. If his condition is polymyalgia rheumatica and he is having pain in his temples this could indicate temporal arteritis that can lead to blindness or stroke and he if He notices any worsening pain in his temples he probably should go to the emergency room. 45 minutes were spent in total care this patient more than half the time spent in [id number] care. Addendum: On August 24Saturday afternoon patient called the office to obtain the report of his C-reactive protein and this was done at [facility] and it was 210 the reference range being 0-10 so this was 20 1 times the normal level. I called the office of Dr. Hayes . I was advised that he had an appointment in a few weeks. I asked to speak to Dr. Hayes and he was still seeing patients and talk to me on the telephone I explained patient's symptoms to him and the extremely high C-reactive protein. I was advised that he would likely need a temporal artery biopsy to establish the diagnosis accurately. He offered to see the gentleman in 3 days following Saturday morning. He had been feeling much better in the morning with the 21 mg of prednisone but this seemed to be wearing off in the evening and I spoke to Dr. Hayes about that and he recommended trying 40 mg prednisone twice daily and I have prescribed that for him. [email or web address] Not available 09/02/2022 17:36:13 Plan of Treatment Reminders Order Date Submit Date Provider Last Modified By Organization Details Last Modified Time Details Appointments None recorded. Lab C-reactive protein, quantitativ e, serum or plasma - fax results to 2022 023 [email or web address] Not available 3 10:06:01 Referral None recorded. Procedures None recorded. Surgeries None recorded. Imaging None recorded. Medication Orders prednisone 20 mg tablet 2022 023 [email or web address] [id number], [address], [place], [place], [id number], 3 10:06:01 Patient TargetsNo targets recorded. Patient InstructionsNo instructions recorded. Reason for Referral None Reported. Results Created Date Observation Date Name Description Value Unit Range Abnormal Flag Note LastModifiedBy Organization Detail LastModifiedTime 08/03/1907/27/2022 XR, shoul carlene, 2 or more view No observ ation record ed. [email or web address] Not Available 07/2022 16:10:16 08/03/1907/26/2022 XR, chest , 2 view No observ ation record ed. [email or web address] Not Available 07/2022 16:10:16 08/21/1907/27/2022 XR, shoul carlene No observ ation record ed. [email or web address] Not Available 2022 18:27:42 Result Notes None recorded. Problems Name Problem SNOMED Code Status Onset Date Resolution Date Notes Provider Name and Address Organization Details Recorded Time Pain of left shoulder joint [id number] 9109 Active 2022 NANCY Blake null, [facility] 3 14:18:54 Polymyalgia rheumatica 32208131 Active 2022 Estela Rodriguez FOUNDRY HELPER null, [facility] 3 15:38:25 Problem Notes None recorded. Medical Equipment None Reported. Medications Name Sig Start Date Stop Date Status Note LastModified by Organization Details LastModified Time cyclobenzapr ine 10 mg tablet TAKE 1 TABLET BY MOUTH THREE TIMES DAILY NEEDED FOR MUSCLE SPASM active Not Available Not Available No t Available prednisone 10 mg tablet TAKE 4 TABLETS BY MOUTH DAILY active Not Available Not Available No t Available atorvastatin 20 mg tablet TAKE 1 TABLET BY MOUTH DAILY active Not Available Not Available No t Available meloxicam 15 mg tablet TAKE 1 TABLET BY MOUTH DAILY active Not Available Not Available No t Available prednisone 20 mg tablet TAKE 1 TABLET BY MOUTH EVERY DAY active Not Available Not Available No t Available methotrexate sodium 2.5 mg tablet active Not Available Not Available No t Available benzonatate 100 mg capsule TAKE 1 CAPSULE BY MOUTH THREE TIMES DAILY NEEDED FOR COUGH 08/20 completed Not Available Not Available Not Available diclofenac sodium 75 mg tablet,delay ed release TAKE 1 TABLET BY MOUTH TWICE DAILY NEEDED FOR PAIN active Not Available Not Available No t Available folic acid 1 mg tablet active Not Available Not Available No t Available amoxicillin 875 mg-potassium clavulanate 125 mg tablet TAKE 1 TABLET BY MOUTH TWICE DAILY 08/20 completed Not Available Not Available Not Available Vitamin C active Not Available Not Mulu ilable Not Available calcium active Not Available Not Avail able Not Available Fish Oil active Not Available Not Avai lable Not Available Centrum Silver active Not Available Not Available Not Available Super Beta-Caroten e active Not Available Not Available Not Available Vitals Date Recorded Body height Body mass index (BMI) Body weight Provider Name and Address Organization Details Last Updated DateTime 08/20/2022 180.34 cm 28.5 kg/m2 15663.84 g NANCY Blake [facility] [employer] [facility] 08/20/2022 14:22:06 Social History None recorded. Functional Status Question Answer Note LastModified by Organizat ion Details LastModified Time What is your level of alcohol consumption? Occasional [email or web address] Information not available 08/20/2022 Mental Status None recorded. Family History Relationship Description Onset Age of this Age Resolved Age Notes LastModified by Organization Details LastModified Time Father Family history of stroke Not available 2022 14:18:00 Medical History Condition Response BLINDNESS N KIDNEY STONES N MRSA N CARPAL TUNNEL SYNDROME N LUNG DISEASE/DISORDER N HISTORY OF DRUG ABUSE N RADIATION / CHEMOTHERAPY N COPD N SPORTS INJURY N ANKLE PAIN N BLOOD DISEASES N PAST SPINAL SURGERY N SCHIZOPHRENIA N SHINGLES N BOWEL PROBLEMS N SHOULDER PAIN N DEPRESSION (INCLUDING POST ) N FAILED BACK SYNDROME N STROKE/TIA N KNEE PAIN N ULCERS N OTHER MODALITIES N BENIGN PROSTATIC HYPERPLASIA N OBESITY N GERD/NAUSEA N ANEURYSM N URINARY/BLADDER/KIDNEY PROBLEMS N CORONARY ARTERY DISEASE (CAD) N Do you have Advance directive? N ADDICTION CONCERNS N USE OF BLOOD THINNERS N SKIN PROBLEMS N EMPHYSEMA N MUSCLE,JOINT OR BONE PROBLEMS N DVT N STOMACH ULCERS N BLOOD CLOTS N PAST HISTORY OF VEHICULAR ACCIDENT N USE OF NSAIDS N CONCUSSION OR SPINAL TRAUMA N ARTERIAL INSUFFICIENCY N NEUROPATHY N AIDS/HIV N FRACTURES N ELBOW PAIN N HYPERTENSION N TOURETTE'S N ANXIETY DISORDER N Metal allergy N BLOOD TRANSFUSION N ANEMIA/BLOOD DISORDER N BIPOLAR DISORDER N BRONCHITIS N OSTEOARTHRITIS N TUBERCULOSIS N FOOT PROBLEM N HEART VALVE DISORDERS N SLEEP APNEA N ALLERGIES/HAYFEVER N SOFT TISSUE INJURY N BACK INJECTIONS N INFECTIOUS DISEASE N HEART ARRHYTHMIA N INSOMNIA N ESRD N PAST INTERVENTIONAL PAIN MANAGEMENT HIST ORY N HIGH CHOLESTEROL / HYPERLIPIDEMIA N RHEUMATOID ARTHRITIS N PAST MEDICATION HISTORY N PVD N EDEMA N CHRONIC PAIN SYNDROME N CAROTID BLOCKAGE N BACK / NECK PROBLEMS N HAVE YOU BEEN HOSPITALIZED OR SEEN IN [facility] IN THE PAST YEAR ? N BURSITIS N HERNIATED DISC N DIALYSIS N POLYCYSTIC OVARIES N FIBROMYALGIA N OSTEOPOROSIS N ARTHRITIS N RESPIRATORY PROBLEMS N NO SIGNIFICANT PAST MEDICAL HISTORY N PAST HISTORY OF FALL N PERIPHERAL NEUROPATHY N DIABETES, TYPE N VON WILLIBRAND'S DISEASE N HEARTBURN / REFLUX N POST LAMINECTOMY SYNDROME N HEPATITIS / LIVER DISEASE N GOUT N SLEEP DISORDER N ALZHEIMER'S DISEASE N HERPES N HEADACHES/MIGRAINES N SEIZURES/EPILEPSY N VASCULAR DISEASE N Blood Disorder N HIP PAIN N DIZZINESS N HEAD TRAUMA OR INJURY N HEART DISEASE/HEART PROBLEMS N MULTIPLE SCLEROSIS N NEUROPSYCHOLOGICAL N CARDIAC ARRHYTHMIA N CANCER: SPECIFY N ANESTHESIA COMPLICATIONS N ATRIAL FIBRILLATION N AUTOIMMUNE DISEASE N Past Encounters Encounter ID Performer Location Encounter Start Date Encounter Closed Date Diagnosis/Indication Diagnosis SNOMED-CT Code Diagnosis ICD10 Code Diagnosis IMO Codes Diagnosis Note [id number] Mason Parker MD [facility] [address] [place] [address] 08/20/2022 13:53:07 09/03/2022 09:41:37 Pain of left shoulder joint [id number] 9202945 M25.512 Health Concerns Section Related Observation LastModified by Organization Detai ls LastModified Time None Recorded Concern Status LastModified by Organization Details LastModified Time None Recorded Advance Directives Directive None Recorded Payers Insurance Date Sequence Insurance Name Policy Number Policy Burton Covered Member ID Burton Member ID Guarantor Name 09/04/2022 1 [place] [id number] Garo Hallman [id number] Garo Hallman Notes Date Note Type Note Provider Name and Address Organization Details Recorded Time 08/20/2022 text/html patient is a 62-year-old gentleman who is referred for evaluation of pain in his left shoulder. The symptoms started suddenly 4 weeks ago. He woke at 12:30 p.m. at night and had extreme pain in the left side of his neck and to her ear left chest the sternum posterior shoulder blade the top shoulder. He recalled that he worked out day before but that no symptoms. He thought he might be having a heart attack. He called 911 and the ambulance gave him nitroglycerin and baby aspirin in the went to the hospital and had EKG and troponin levels x2 2 hours apart and chest x-ray and it was felt that heart attack was ruled out. Prior to discharge the emergency room his pain had improved by about 75%. He denied any numbness or tingling in left upper extremity. He did have x-rays left shoulder 07/27/2022 and cervical spine which showed mild AC joint degenerative change and prominent anterior vertebral endplate osteophytes C4-5 6 and 7 consistent with cervical spondylosis. His symptoms resolved after 1 day and he returned to work for about a week and half. He was taking muscle relaxers and meloxicam. He thought the meloxicam may be caused headaches we tried diclofenac in seem to help. After that he started having pain that was excruciating in both biceps. Pain was not related to any movement of the elbow or shoulder. Pain seems to seem to radiate into the left forearm. More recently he has noticed pain in both thighs anteriorly right greater than left. He also has had severe pains in the sides of his head his temples bilaterally. He has lost 16 lb as he has lost his appetite. He has a history of lateral thigh numbness on the right a tingling burning sensation right lateral thigh consistent and would this was thought to be due to degenerative disc disease in his lower lumbar spine. This was a few years ago. He did 6 months of physical therapy on core strengthening and back stabilization exercises and his symptoms resolved. He has been having a low-grade fever and he feels he is tired all the time. He has morning stiffness that lingers several hours. He was sent for blood work to look for signs of an inflammatory process. Alk-phos was slightly elevated at 133. Rheumatoid factor slightly elevated at 23.7 but the anti CCP was 0. Sedimentation rate was normal at 24. JOSSE screen was negative. In addition to be referred to me he was referred to Dr. Asencio for a rheumatologic evaluation. He has left several messages with their office and is not heard anything regarding setting up an appointment. Mason Parker MD [address] [place] [address], [place] [address], [place], [address], [place] [facility] 09/02/2022 17:36:35
--- OUTSIDE RECORDS SUMMARY | 2025-03-01 16:27 | XMS_ITS | Clinical Summary ---
Author Organization [facility] Address [address] [place] [address] Care Team Providers Care Cytology Teacher Name Role Phone Madhu Diallo MD Primary Care Provider [phone] Madhu Diallo MD Unavailable [phone] Source Comments [facility],non-owned Affiliates and Associated Physician Practices is amultiple site organization consisting of ambulatory clinics and hospital sitesin [place], [place], [place] and [place]. This disclosure is being madepursuant to the Care Everywhere program and may not contain all information available regarding this patient. Last updated 18.[facility] Medications * Be aware that medications may not be up to date on this document. Alwaysverify current medications with the patient. No known medications Social History Tobacco Use Types Packs/Day Years Used Date Smoking Tobacco: Never Sex and Gender Information Value Date Recorded Sex Assigned at Not on file Legal Sex Male 11:05 AM CDT Gender Identity Not on file Sexual Orientation Not on file Last Filed Vital Signs Vital Sign Reading Time Taken Comments Blood Pressure 116/82 05/09/2016 9:13 AM DATA PROCESSING SUPERVISOR Pulse 66 05/09/2016 9:13 AM DATA PROCESSING SUPERVISOR Temperature 36.8 C (98.2 F) 05/09/2016 9:13 AM DATA PROCESSING SUPERVISOR Respiratory Rate 16 05/09/2016 9:13 AM DATA PROCESSING SUPERVISOR Oxygen Saturation 98% 05/09/2016 9:13 AM DATA PROCESSING SUPERVISOR Inhaled Oxygen Concentration - - Weight 102.1 kg (225 lb) 05/09/2016 9:13 AM DATA PROCESSING SUPERVISOR Height 182.9 cm (6') 05/09/2016 9:13 AM DATA PROCESSING SUPERVISOR Body Mass Index 30.52 05/09/2016 9:13 AM DATA PROCESSING SUPERVISOR Plan of Treatment Health Maintenance Due Date Last Done Comments COLOGUARD (AGES 45-75) - COL ON CA SCREENING 1959 COLON MONITORING 1959 COLONOSCOPY - COLON CA SCREENING 1959 CT COLONOGRAPHY - COLON CA SCREENING 1959 Colorectal Cancer Screening 1959 FIT - COLON CA SCREENING 1959 FLEX SIG - COLON CA SCREENING 1959 LIPID TESTING 1959 HIV SCREENING 1974 HEPATITIS C SCREENING 02/26/1977 DTAP/TDAP/TD VACCINES (1 - Tdap) 1978 PNEUMOCOCCAL VACCINE 50+ (1 of 1 - PCV) 2009 ZOSTER VACCINE (1 of 2) 2009 DEPRESSION SCREENING 06/03/2024 COVID-19 VACCINE (1 - 2023-2 5 season) 2025 INFLUENZA VACCINE (#1) 2025 Respiratory Syncytial Virus (RSV) Vaccine Pt: or over 60 yrs (1 - 1-dose 75+ series) 2034 HEPATITIS B VACCINE Aged Out No longe r eligible based on patient's age to complete this topic HIB VACCINE Aged Out No longer eligi ble based on patient's age to complete this topic HPV VACCINE Aged Out No longer eligi ble based on patient's age to complete this topic MENINGOCOCCAL (Group B) VACC INE SHARED DECISION-MAKING Aged Out No longer eligibl e based on patient's age to complete this topic MENINGOCOCCAL GROUPS A/C/Y/W VACCINE Aged Out No longer eligible b ased on patient's age to complete this topic Insurance HENRRY Care Teams Cytology Teacher Relationship Specialty Start Date End Date Madhu Diallo MD [address] [facility] [place] [address] PCP - General 02/25/18 Madhu Diallo MD [address] [place] [address] Family Medicine 02/25/18
--- OUTSIDE RECORDS SUMMARY | 2025-03-01 16:27 | XMS_ITS | Clinical Summary ---
Author Organization [facility] Isabela aKng Address [address] [place] [place] [address] Care Team Providers Care Public Health Outreach Worker Name Role Phone Unavailable Primary Care Provider Unavailabl e Allergies No known active allergies Medications atorvastatin (LIPITOR) 20 mg tablet Take 20 mg by mouth daily. Active predniSONE (DELTASONE) 20 mg tablet Take 20 mg by mouth daily. Active sulfaSALAzine (AZULFIDINE EN-TAB) 500 mg Tablet, Delayed Release (E.C.) Take 3,000 mg by mouth daily. 01/13/2024 Active Active Problems Problem Noted Date Diagnosed Date Colitis 03/01/2025 Giant cell arteritis 03/01/2025 Neuropathy 03/01/2025 High cholesterol 03/01/2025 Encounters Date Type Department Care Team Description 03/01/2025 3:00 PM CDT Office Visit [facility] - [place] [address] [place] [address] Curt Augustine MD Colitis (Primary Dx); Giant cell arteritis (CMS/HCC); Neuropathy; High cholesterol; Plasma cell disorder from Last 3 Months Family History Medical History Relation Name Comments Cancer Brother 1 No Known Problems Brother 2 Heart Disease Father Cancer Mother Cancer Sister Relation Name Status Comments Brother 1 Alive Brother 2 Alive Father Alive Mother Sister Alive Social History Tobacco Use Types Packs/Day Years [...] - - Body Mass Index - - Plan of Treatment Upcoming Encounters Date Type Department Care Team (Late st Contact Info) Description 03/16/2025 4:30 PM CDT Telephone Check Up [facility] - [place] [address] [place] [address] Curt Augustine MD [address] [place] [address] Health Maintenance Due Date Last Done Comments Traditional Medicare (ACO) A nnual Wellness Visit 1978 COLORECTAL SCREENING 2004 Colorectal Cancer Screening 2004 FIT-DNA Q 3 years 2004 FIT/FOBT Q 1 year 2004 Flex Sig/CT Colonography Q 5 years 2004 PNEUMOCOCCAL VACCINE 50+ YEA RS (1 of 1 - PCV) 2009 ZOSTER VACCINE (1 of 2) 2009 INFLUENZA VACCINE (#1) 2025 DTAP/TDAP/TD VACCINES (3 - Td or Tdap) 10/17/2026, 12/06/2011 RSV VACCINE (60+ or ) (1 - 1-dose 75+ series) 2034 Insurance MEDICARE PART A AND B [facility]
[2025-03-01 16:41] LABS: Alanine Aminotransferase 19 U/L (6-50); Albumin Level 4.3 g/dL (3.5-5.1); Alkaline Phosphatase 82 U/L (38-126); Anion Gap 7 mmol/L (4-12); Aspartate Amino Transferase 28 U/L (17-59); Bilirubin,Total 0.5 mg/dL (0.2-1.3); Blood Urea Nitrogen 23 mg/dL (9-20); Calcium 9.0 mg/dL (8.4-10.2); Carbon Dioxide 27 mmol/L (22-30); Chloride 105 mmol/L (98-107); Estimated Glomerular Filt Rate 59; Glucose 91 mg/dL (65-110); Potassium 4.3 mmol/L (3.4-5.0); Sodium 139 mmol/L (137-145); Total Protein 7.6 g/dL (6.3-8.2)
[2025-03-01 16:48] LABS: Immunoglobulin A 82 mg/dL (70-400); Immunoglobulin G 1130 mg/dL (700-1600); Immunoglobulin M 35 mg/dL (40-230)
[2025-03-02 14:09] LABS: Albumin 3.8 g/dL (2.9-4.4); Alpha-1-Globulin 0.2 g/dL (0.0-0.4); Alpha-2-Globulin 0.7 g/dL (0.4-1.0); Gamma Globulin 1.0 g/dL (0.4-1.8)
[2025-03-02 16:08] LABS: Free Lambda Lt Chains, Serum 8.4 mg/L (5.7-26.3); Kappa/Lambda Ratio, Serum 1.39 (0.26-1.65)
== END 2025-03-01 15:38 | disposition home or self-care (01) ==
PROVIDERS: PCP Family Medicine; Visit Provider Internal Medicine Hematology & Oncology
DX: D72.9 Disorder of white blood cells, unspecified (principal)
CPT/HCPCS: 36415; 80053; 82784; 83521; 84155; 84165; 85025

== ENCOUNTER 2025-03-01 16:05 | Outpatient (CLI) | payer MEDICARE, SELFPAY ==
--- OUTSIDE RECORDS SUMMARY | 2000-07-08 08:30 | XMS_ITS | Continuity of Care Document ---
Author Organization [facility] Address [id number] [place] [address] [address] [place] [address] Phone Care Team Providers Care Senior Stack Engineer Name Role Phone Won Valverde Unavailable Unavailable Advance Directives Directive Yes / No Effective Date File Name No Information Encounters Encounter Description Practice Location Reason(s) For Visit Diagnoses Date Provider Providers Copied on Encounter [facility], [id number] [place] [address] [address], [place], [place], [id number], [place] tel:[phone] [facility] [place] No Information [id number] 1 Abram Upton. [address] [facility] , [address], [place], [address], [place]. tel:[phone] Family History Family Member Type Diagnosis Age At Onset No Information Payers Payer name Insurance type Covered green party ID Authoriza tion(s) BC[employer] [place] [id number] Social History Type Description Quantity Date Captured Comments Sex Male Smoking Status No Information Chief Complaint And Reason For Visit No Information Reason For Referral Reason For Referral No Information History Of Present Illness Encounter Date Complaint History Of Prese nt Illness No Information Functional Status Date Functional Assessmen t No Information Instructions Date Instruction Additional Infor mation No Information Assessments Type Assessment Date No Information Patient Care Teams Name Effective Dates (start - stop) Status Members No Information
--- NOTE | ~2025-03-01 | XR_ITS ---
EXAMINATION: BONE SURVEY/METASTATIC SURVEY DATE: 03/01/2025 INDICATION: Asthma cell disorder TECHNIQUE: A skeletal survey was performed including AP views of the chest, abdomen and pelvis; AP and lateral/lateral swimmers views of the cervical, thoracic and lumbar spine; lateral view of the skull, and AP and lateral views of the appendicular skeleton excluding the hands and feet. COMPARISON: None. FINDINGS: Calcified nodules at the left lung base and at the spleen consistent with old granulomatous disease. No other airspace opacities, pulmonary edema, pleural effusion or pneumothorax. Cardiomediastinal silhouette is normal. Scattered degenerative skeletal changes including mild to moderate spondylosis in the cervical, thoracic and lumbar spine and mild polyarticular osteoarthritis in the extremities. There are bridging osteophytes at multiple levels consistent with diffuse idiopathic skeletal hyperostosis (DISH). Postoperative change of prior left inguinal hernia repair. Prostatic calcifications. Heterotopic ossification along the musculature at the medial right thigh suggests sequela of old trauma. No suspicious lytic or blastic bone lesions to suggest multiple myeloma or other metastatic disease. IMPRESSION: 1. No suspicious lytic or blastic bone lesions to suggest multiple myeloma or other osseous metastatic disease. Reviewed, dictated and finalized at location A. IMPRESSION: 1. No suspicious lytic or blastic bone lesions to suggest multiple myeloma or o ther osseous metastatic disease.
--- OUTSIDE RECORDS SUMMARY | 2025-03-01 15:00 | XMS_ITS | Encounter Summary ---
Author Organization [facility] [employer] [facility] Address [address] [place] [address] Care Team Providers Care Concrete Vibrator Operator Name Role Phone Unavailable Primary Care Provider Unavailabl e Reason for Referral * Radiology Services (Routine) - Open Specialty Diagnoses / Procedures Referred By Kimberlee t Referred To Contact Diagnoses Plasma cell disorder Procedures XR BONE SURVEY COMPLETE Curt Augustine MD [address] [place] [phone] Phone: tel: fax: Referral ID Status Reason Start Date Expiration Date Visits Re quested Visits Authorized [id number] Open 03/01/2025 04/01/2026 1 1 Reason for Visit * Reason Comments Establish Care Encounter Details Date Type Department Care Team (Late st Contact Info) Description 03/01/2025 3:00 PM CDT Office Visit [facility] Oncology and Hematology - [place] [address] [place] [address] [address] [place] [address] Curt Augustine MD [facility] [employer] [address] [place] [address] Colitis (Primary Dx); Giant cell [...] 03/16/2025 4:30 PM CDT Telephone Check Up [facility] Oncology and Hematology [facility] [address] [facility] [address] [place] [address] Curt Augustien MD [address] [facility] [address] [place] [address] Scheduled Orders Name Type Priority [...]
--- OUTSIDE RECORDS SUMMARY | 2025-03-01 16:49 | XMS_ITS | Clinical Summary ---
Author Organization [facility] Isabela Kang Address [address] [place] [place] [address] Care Team Providers Care Peoplesoft Financials Consultant Name Role Phone Unavailable Primary Care Provider [...] Description 03/01/2025 3:00 PM CDT Office Visit [facility]ology - [place] [address] [place] [address] Curt Augustine MD Colitis (Primary [...] 03/16/2025 4:30 PM CDT Telephone Check Up [facility] Oncology and Hematology - [place] [address] [place] [address] Curt Augustine MD [address] [place] [address] Health Maintenance Due Date Last [...] 2034 Insurance MEDICARE PART A AND B [facility]
--- OUTSIDE RECORDS SUMMARY | 2025-03-01 16:49 | XMS_ITS | Clinical Summary ---
Author Organization [facility] Address [address] [place] [address] Care Team Providers Care Tax Investigator Name Role Phone Madhu Diallo MD Primary Care Provider [phone] Madhu Diallo MD Unavailable [phone] [facility],non-owned Affiliates and Associated Physician Practices is amultiple site organization consisting of ambulatory clinics and hospital sitesin [place], [place], [place] and [place]. This disclosure is being madepursuant to the Care Everywhere program and may not contain all information available regarding this patient. Last updated 18.[facility] Medications * Be aware that medications may [...] Comments Blood Pressure 116/82 05/09/2016 9:13 AM BOILER PLANT OPERATOR Pulse 66 05/09/2016 9:13 AM BOILER PLANT OPERATOR Temperature 36.8 C (98.2 F) 05/09/2016 9:13 AM BOILER PLANT OPERATOR Respiratory Rate 16 05/09/2016 9:13 AM BOILER PLANT OPERATOR Oxygen Saturation 98% 05/09/2016 9:13 AM BOILER PLANT OPERATOR Inhaled Oxygen Concentration - - Weight 102.1 kg (225 lb) 05/09/2016 9:13 AM BOILER PLANT OPERATOR Height 182.9 cm (6') 05/09/2016 9:13 AM BOILER PLANT OPERATOR Body Mass Index 30.52 05/09/2016 9:13 AM BOILER PLANT OPERATOR Plan of Treatment Health Maintenance Due Date [...] complete this topic Insurance HENRRY Care Teams Tax Investigator Relationship Specialty Start Date End Date Madhu Diallo MD [address] [facility] [address] PCP - General 02/25/18 Madhu Diallo MD [address] [place] [address] Family Medicine 02/25/18
--- OUTSIDE RECORDS SUMMARY | 2025-03-01 16:49 | XMS_ITS | Clinical Summary ---
Author Organization [facility] Address [address] [address] Phone Care Team Providers Care Endoscopy Technican Name Role Phone Lisy Stewart MD Primary Care Provider [phone] Sumaya Foreman APRN, CONTACT CENTER MANAGER Unavailable Carl Leigh MD Unavailable [phone] Allergies No known active allergies Medications bismuth subsalicylate (PEPTO-BISMOL) 262 MG/15ML Suspension Take 30 mL by mouth every 6 hours as needed. Active atorvastatin (LIPITOR) 20 MG Tablet Take 20 mg by mouth daily. 1 Active Multiple Vitamins-Minerals (CENTRUM SILVER PO) Take by mouth daily. Active [facility]-3 Fatty Acids (fish oil) 1200 MG Capsule [...] Maintenance Insurance MEDICARE COMMERCIAL GENERIC Care Teams Endoscopy Technican Relationship Specialty Start Date End Date Lisy Stewart MD [address] [place] [address] PCP - General Family Medicine 08/14/21 Sumaya Foreman APRN, CONTACT CENTER MANAGER [address] [place] [address] Nurse Practitioner Advanced Practice Nurse 09/13/22 Carl Leigh MD [address] [place] [address] Consulting Physician Gastroenterology 07/25/23
== END 2025-03-01 16:06 | disposition home or self-care (01) ==
PROVIDERS: PCP Family Medicine; Visit Provider Internal Medicine Hematology & Oncology
DX: D72.9 Disorder of white blood cells, unspecified (principal)
CPT/HCPCS: 77075